=== PATIENT | female | born 1965 | race Caucasian/White ===

== ENCOUNTER → 2017-02-08 | Outpatient (CLI) | payer BC ==
[~2017-02-08] MED LIST: CHOLCAP5; CYAN10005 PO; FLUC100T4 PO; IBUP-103 PO; MULT-506 PO; NATA1INJ
[2017-02-08 12:16] LABS: BASO % 1.7 %; BASO ABS # 0.16 K/uL (0-0.2); COMPLETE YES; EOS % 8.1 %; HEMATOCRIT 40.5 % (37-47); IG% 0.8 %; LYMPH % 46.4 %; MEAN CELL VOLUME 87.5 fL (80-100); MEAN CORPUSCULAR HEMOGLOBIN 31.1 pg (25-34); MEAN CORPUSCULAR HGB CONC 35.6 g/dl (32-36); MEAN PLATELET VOLUME 10.2 fL (7.4-10.4); MONO % 9.1 %; NEUT % 33.9 %; PLATELET COUNT 248 K/uL (130-400); RED BLOOD COUNT 4.63 M/uL (4.2-5.4); WHITE BLOOD COUNT 9.26 K/uL (4.8-10.8)
[2017-02-08 12:42] LABS: ALT/SGPT 26 U/L (12-78); AST/SGOT 18 U/L (15-37); BLOOD UREA NITROGEN 18 mg/dl (7-18); CARBON DIOXIDE 30 mmol/L (21-32); CHLORIDE 106 mmol/L (98-107); CREATININE 0.82 mg/dl (0.60-1.20); GLUCOSE 79 mg/dl (70-99); POTASSIUM 3.9 mmol/L (3.5-5.1); SODIUM 140 mmol/L (136-145)
[2017-02-08 12:52] LABS: ALB/GLOB RATIO 1.1 (0.9-2); ALKALINE PHOSPHATASE 74 U/L (45-117)
== END | disposition home or self-care (01) ==
LOC: C.LABPBG 10:02
PROVIDERS: ATTEND Student in an Organized Health Care Education/Training Program
DX: G35 Multiple sclerosis (principal); E55.9 Vitamin D deficiency, unspecified; R53.83 Other fatigue; R41.3 Other amnesia

== ENCOUNTER → 2017-08-09 | Outpatient (CLI) | payer BC ==
[2017-08-09 11:49] LABS: BASO % 1.8 %; BASO ABS # 0.15 K/uL (0-0.2); COMPLETE YES; EOS % 6.6 %; HEMATOCRIT 40.7 % (37-47); IG% 0.4 %; LYMPH % 45.9 %; LYMPH ABS # 3.81 K/uL (1.2-3.4); MEAN CELL VOLUME 88.5 fL (80-100); MEAN CORPUSCULAR HEMOGLOBIN 30.7 pg (25-34); MEAN CORPUSCULAR HGB CONC 34.6 g/dl (32-36); MEAN PLATELET VOLUME 9.6 fL (7.4-10.4); MONO % 8.8 %; NEUT % 36.5 %; PLATELET COUNT 299 K/uL (130-400)
[2017-08-09 12:02] LABS: ALT/SGPT 17 U/L (12-78); BLOOD UREA NITROGEN 14 mg/dl (7-18); CALCIUM 9.3 mg/dl (8.5-10.1); CARBON DIOXIDE 26 mmol/L (21-32); CHLORIDE 106 mmol/L (98-107); CREATININE 0.71 mg/dl (0.60-1.20); GLUCOSE 85 mg/dl (70-99); POTASSIUM 3.9 mmol/L (3.5-5.1); SODIUM 138 mmol/L (136-145)
[2017-08-09 12:05] LABS: ALKALINE PHOSPHATASE 80 U/L (45-117); AST/SGOT 15 U/L (15-37)
== END | disposition home or self-care (01) ==
LOC: C.LABPBG 10:07
PROVIDERS: ATTEND Student in an Organized Health Care Education/Training Program
DX: G35 Multiple sclerosis (principal); E55.9 Vitamin D deficiency, unspecified; K59.00 Constipation, unspecified

== ENCOUNTER → 2017-08-15 | Outpatient (CLI) | payer BC, OTHER ==
[~2017-08-15] MED LIST changes: +GADAVIST IV PRN
--- NOTE | 2017-08-15 14:52 | DIAGNOSTIC IMAGING REPORT ---
BRAIN COMBO FOR MS HISTORY: 52 years-old Female MS history of multiple sclerosis. Follow-up study. COMPARISON: Brain MR 09/06/2016 TECHNIQUE: Multiplanar multisequence MRI the brain was obtained both with and without the use of 7.5 mL Gadavist. FINDINGS: No restricted diffusion to suggest acute ischemia. Midline structures including the corpus callosum, optic chiasm, infundibulum, brainstem, pituitary and pineal glands are unremarkable. No cerebellar tonsillar herniation. No acute intracranial hemorrhage, midline shift, hydrocephalus or abnormal extra-axial collections. There is redemonstration of multifocal areas of T2/FLAIR prolongation within the periventricular and to a lesser extent within the subcortical white matter of the cerebral hemispheres bilaterally which appears stable from comparison study 09/06/2016. No new lesions are identified. No infratentorial lesions are identified. No associated enhancement identified to suggest active demyelination. Major flow voids at the skull base are patent. The mastoid air cells are clear. Paranasal sinuses are also clear. Orbits are symmetric. IMPRESSION: 1. No acute intracranial abnormality. No evidence of acute ischemia. 2. Stable findings of numerous foci of T2/FLAIR prolongation within the subcortical and periventricular white matter of the cerebral hemispheres bilaterally without new foci identified. These findings are most compatible with the patient's reported diagnosis of multiple sclerosis. No infratentorial disease. No enhancing foci seen to suggest active demyelination. The above report was generated using voice recognition software. It may contain grammatical, syntax or spelling errors. Electronically signed by: Jarrell Awan M.D. 08/15/2017 2:50 PM Dictated Date/Time: 08/15/2017 2:36 PM
== END | disposition home or self-care (01) ==
LOC: C.MRI 13:12
PROVIDERS: ATTEND Psychiatry & Neurology Neurology
DX: G35 Multiple sclerosis (principal)